=== PATIENT | male | born 1965 | race Caucasian/White ===

== ENCOUNTER 2025-02-23 11:46 | Outpatient (CLI) | payer OTHER, SELFPAY ==
--- NOTE | ~2025-02-23 | XR_ITS ---
EXAM/ PROCEDURE: XR knee RT min 4V - 02/23/2025 12:20 CDT HISTORY: 59 years old Male with pain of rt knee joint. MEDIAL PAIN X 3 DAYS NKI COMPARISON: None available TECHNIQUE: 5 view(s) FINDINGS/ IMPRESSION: There are no fractures or dislocations.Joint space narrowing, subchondral sclerosis, subchondral cyst formation and osteophyte formation, compatible with mild osteoarthritis. Reviewed, dictated and finalized at location A.
--- NOTE | ~2025-02-23 | US_ITS ---
EXAMINATION: US venous doppler LE RT DATE: 02/23/2025 13:15 INDICATION: Right lower limb pain and swelling TECHNIQUE: Grayscale ultrasound images without and with compression and Doppler ultrasound images of the right lower extremity veins were obtained. COMPARISON: None. FINDINGS: Noncompressible deep venous thrombosis in the mid to distal right superficial femoral vein and right popliteal vein. The visualized portions of right common femoral vein, profunda (deep) femoral vein, p osterior tibial veins, gastrocnemius vein and greater saphenous vein outflow are patent. The right pe roneal veins were unable to be identified. IMPRESSION: 1. [id number] deep venous thrombosis extending from the mid right superficial femoral vein dista lly through the right popliteal vein. Reviewed, dictated and finalized at location B. IMPRESSION: 1. Sopof-[id number] deep venous thrombosis extending from the mid right superfic ial femoral vein distally through the right popliteal vein.
--- OUTSIDE RECORDS SUMMARY | 2025-02-23 12:35 | XMS_ITS | Data Portability ---
Author Organization [facility] Address [address] [facility] [address] Care Team Providers Care Director Of Hemophilia Name Role Phone TAMAR KENDRICK Primary Care Provider [phone] Assessment Encounter Date Assessment Date Assessment LastModified by Organization Details LastModified Time 09/14/2024 09/14/2024 we will obtain his previous colonoscopy. We will obtain records from [facility] and we will [facility] follow up in 3 months. Healthy lifestyle care instructions quitting tobacco care instructions getting back on his blood pressure medicines he can come and get a blood pressure check in a couple of weeks [email or web address] Not available 09/18/2024 17:50:01 02/22/2025 02/22/2025 x-ray of the knee a stat venous duplex on the leg with his history of DVT I think some of his knee pain is pes anserinus and if there is no evidence of clot we will talk about possibly some diclofenac gel to the area plus-minus physical therapy follow up will be depending upon test results. Warned of the side effects of tobacco which included but not limited to increase tumors of aerodigestive tract increase insulin as heart attack stroke cancer that could lead to sudden or chronic medical illness [email or web address] Not available 02/22/2025 21:51:48 Plan of Treatment Reminders Order Date Submit Date Provider Last Modified By Organization Details Last Modified Time Details Appointments None recorded. Lab lipid panel, serum 2024 025 [email or web address] [facility], [address], [place], [address], 17:22:11 CMP, serum or plasma 2024 025 [email or web address] [facility], [address], [place], [address], 5 17:22:11 CBC w/ auto diff 2024 025 [email or web address] [facility], [address], [place], [address], 5 17:22:11 PSA, total, serum or plasma 2023 024 [facility], [address], [place], [address], 4 10:17:59 lipid panel, serum 2023 024 [facility], [address], [address], [place], [address], 4 10:17:57 CBC 2023 024 [facility], [address], [address], [place], [address], 4 10:18:01 CMP, serum or plasma 2023 024 [facility], [address], [place], [address], 4 10:17:58 RPR (rapid plasma reagin), serum 2022 023 [facility], [address], [address], [place], [address], 3 08:17:44 HIV 1 + 2, meaningful use set 2022 023 [facility], [address], [address], [place], [address], 3 08:17:45 CT + NG RNA, PCR, unspecifie d specimen 2022 023 [facility], [address], [address], [place], [address], 3 08:17:42 hsv (1+2) igg Ab, serum 2022 023 [facility], [address], [address], [place], [address], 3 08:17:41 Hepatitis C IgG Ab, qual, serum 2022 023 [facility], [address], [address], [place], [address], 3 08:17:40 HBsAg (hepatitis B surface Ag), EIA, serum 2022 023 [facility], [address], [address], [place], [address], 3 08:17:44 hepatitis C virus RNA, quant, PCR, serum or plasma 2022 023 [facility], [address], [address], [place], [address], 3 08:17:42 drug screen, urine 2022 023 [facility], [address], [address], [place], [address], 3 08:17:43 Referral None recorded. Procedures None recorded. Surgeries None recorded. Imaging US, duplex, venous, lower extremity 2024 025 [facility] ([facility]), [address], [place], [address], 5 10:05:23 XR, knee 2024 025 [facility] ([facility]), [address], [place], [address], 5 10:10:34 Medication Orders sildenafil 100 mg tablet 2023 024 [facility], [address] [place] [address], [id number], 4 15:33:37 rosuvastat in 20 mg tablet 2023 024 [facility], [address] [place] [address], [id number], 4 15:33:42 valacyclov ir 500 mg tablet 2023 [facility], [address] [place] [address], [id number], 4 15:33:40 lisinopril 20 mg tablet 2023 [facility], [address] [place] [address], [id number], 4 15:33:40 Xarelto 20 mg tablet 2023 024 [facility], [address] [place] [address], [id number], 4 09:16:18 lisinopril 10 mg tablet 2023 024 [facility], [address] [place] [address], [id number], 4 09:38:26 Viagra 100 mg tablet 2022 023 [id number], [address] [place] [address], [id number], 3 14:55:12 Patient TargetsNo targets recorded. Patient Instructions Encounter Date Encounter Id Patient Instructions Last Modified By Organization Details Last Modified Time 02/11/2023 [id number] A healthy lifestyle: care instructions [facility] Not available 02/11/2023 14:55:01 Quitting Tobacco : Care Instructions [facility] Not available 02/11/2023 14:55:01 03/16/2023 [id number] deciding about using medicines to quit smoking [facility] Not available 03/16/2023 15:14:33 Quitting Tobacco : Care Instructions [facility] Not available 03/16/2023 15:14:33 chronic obstructive pulmonary disease (COPD): care instructions [facility] Not available 03/16/2023 15:14:34 learning about copd and how to prevent lung infections [facility] Not available 03/16/2023 15:14:34 01/05/2024 [id number] learning about high blood pressure [facility] Not available 01/05/2024 17:53:27 09/14/2024 [id number] Quitting Tobacco : Care Instructions [email or web address] Not available 09/18/2024 17:51:32 A healthy lifestyle: care instructions Not available 09/18/2024 17:51:32 02/22/2025 [id number] A healthy lifestyle: care instructions Not available 02/22/2025 17:22:11 Quitting Tobacco : Care Instructions Not available 02/22/2025 17:22:11 Reason for Referral None Reported. Results Created Date Observation Date Name Description Value Unit Range Abnormal Flag Note LastModifiedBy Organization Detail LastModifiedTime 02/12/2002/12/2023 HCV ANTIB SIVA hep C virus Ab Reacti ve nonrea ctive abnormal HCV antib siva alone does not diffe renti ate betwe en previ ously resol micheal infec tion and activ e infec tion. Equiv ocal and React deisy HCV antib siva resul ts shoul d be follo wed up with an HCV RNA test to suppo rt the diagn osis of activ e HCV infec tion. Not Available [facility] ([facility]) [address], [place], [address], 02/13/2023 08:17:40 02/12/2002/12/2023 HSV 1 AND 2-SPE C AB, IGG W/RFX hsv 1 IgG, type spec 8.78 index 0.00-0 .90 above high normal Negat deisy <0.91 Equiv ocal 0.91 - 1.09 Posit deisy >1.09 Note: Negat deisy indic ates no antib odies detec radha to HSV-1 . Equiv ocal may sugge st early infec tion. If clini todd appro priat e, retes t at later date. Posit deisy indic ates antib odies detec radha to HSV-1 . Not Available [facility] ([facility]) [address] [facility], [place], [address], 02/13/2023 08:17:41 02/12/20 23 02/12/2023 HSV 1 AND 2-SPE C AB, IGG W/RFX hsv 2 IgG, type spec 1.40 index 0.00-0 .90 above high normal Negat deisy <0.91 Equiv ocal 0.91 - 1.09 Posit deisy >1.09 Note: Negat deisy indic ates no HSV-2 antib odies detec radha. Posit deisy indic ates HSV-2 antib odies detec radha. Equiv ocal and low posit deisy HSV-2 scree ns (Inde x 0.91- 5.00) may be false posit deisy and are refle xed to suppl nikki hollis in accor dance with CDC guide lines . Not Available [facility] ([facility]) [address] [facility], [place], [address], 02/13/2023 08:17:41 02/12/20 23 02/12/2023 CHLAM YDIA/ GC AMPLI FICAT ION chlamydia trachomatis, LAURENCE Negati ve negati ve Not Available [facility] ([facility]) [address] [place], [address], 02/13/2023 08:17:42 02/12/2002/12/2023 CHLAM YDIA/ GC AMPLI FICAT ION neisseria gonorrhoeae, LAURENCE Negati ve negati ve Not Available [facility] ([facility]) [address] [place], [address], 02/13/2023 08:17:42 02/12/20 23 02/11/2023 HCV RNA BY PCR, QN RFX XUAN test information: Commen t The quant itati ve range of this assay is 15 IU/mL to 100 junior on IU/mL . Not Available [facility] ([facility]) [address] [facility], [place], [address], 02/13/2023 08:17:42 02/12/20 23 02/12/2023 HCV RNA BY PCR, QN RFX XUAN hepatitis C quantitation HCV Not Detect ed Not Available [facility] ([facility]) [address] [facility], [place], [address], 02/13/2023 08:17:42 02/12/2002/12/2023 HCV RNA BY PCR, QN RFX XUAN HCV log10 TNP log10 _IU/m L Unabl e to calcu late resul t since non-n umeri c resul t obtai fred for compo nent test. Not Available [facility] ([facility]) [address] [facility], [place], [address], 02/13/2023 08:17:42 02/12/20 23 02/12/2023 HCV RNA BY PCR, QN RFX XUAN HCV genotype TNP Not indic ated Not Available [facility] ([facility]) [address] [place], [address], 02/13/2023 08:17:42 02/12/20 23 02/12/2023 DRUG PROFI LE,UR ,9 DRUGS ,BUND amphetamines , urine Negati ve NG/mL cutoff =1000 Amphe tamin e test inclu felipe Amphe tamin e and Metha mphet amine . Not Available [facility] ([facility]) [address] [facility], [place], [address], 02/13/2023 08:17:43 02/12/20 23 02/12/2023 DRUG PROFI LE,UR ,9 DRUGS ,BUND barbiturate Negati ve NG/mL cutoff =300 Not Available [facility] ([facility]) [address] [place], [address], 02/13/2023 08:17:43 02/12/20 23 02/12/2023 DRUG PROFI LE,UR ,9 DRUGS ,BUND benzodiazepi gretta Negati ve NG/mL cutoff =300 Not Available [facility] ([facility]) [address] [place], [address], 02/13/2023 08:17:43 02/12/20 23 02/12/2023 DRUG PROFI LE,UR ,9 DRUGS ,BUND cannabinoid Negati ve NG/mL cutoff =50 Not Available [facility] ([facility]) [address] [place], [address], 02/13/2023 08:17:43 02/12/20 23 02/12/2023 DRUG PROFI LE,UR ,9 DRUGS ,BUND cocaine (metab.) Negati ve NG/mL cutoff =300 Not Available [facility] ([facility]) [address] [place], [address], 02/13/2023 08:17:43 02/12/20 23 02/12/2023 DRUG PROFI LE,UR ,9 DRUGS ,BUND opiates Negati ve NG/mL cutoff =300 Opiat e test inclu felipe Codei ne and Morph ine only. Not Available [facility] ([facility]) [address] [place], [address], 02/13/2023 08:17:43 02/12/20 23 02/12/2023 DRUG PROFI LE,UR ,9 DRUGS ,BUND phencyclidin e Negati ve NG/mL cutoff =25 Not Available [facility] ([facility]) [address] [place], [address], 02/13/2023 08:17:43 02/12/20 23 02/12/2023 DRUG PROFI LE,UR ,9 DRUGS ,BUND propoxyphene , urine Negati ve NG/mL cutoff =300 Not Available [facility] ([facility]) [address] [facility], [place], [address], 02/13/2023 08:17:43 02/12/20 23 02/13/2023 DRUG PROFI LE,UR ,9 DRUGS ,BUND methadone screen, urine Negati ve NG/mL cutoff =300 Not Available [facility] ([facility]) [address] [place], [address], 02/13/2023 08:17:43 02/12/20 23 02/12/2023 HBSAG SCREE N HBsAg screen Negati ve negati ve Not Available [facility] ([facility]) [address] [place], [address], 02/13/2023 08:17:44 02/12/20 23 02/12/2023 RPR, RFX QN RPR/C ONFIR M TP RPR Non Reacti ve nonrea ctive Not Available [facility] ([facility]) [address] [facility], [place], [address], 02/13/2023 08:17:44 02/12/2002/12/2023 HIV AB/P2 4 AG WITH REFLE X HIV Ab/P24 Ag screen Non Reacti ve nonrea ctive HIV Negat deisy HIV-1 /HIV- 2 antib odies and HIV-1 p24 antig en were NOT detec radha. There is no labor atory evide nce of HIV infec tion. Not Available [facility] ([facility]) [address] [facility], [place], [address], 02/13/2023 08:17:45 02/12/2002/12/2023 HSV-2 IGG SUPPL EMENT AL TEST hsv-2 IgG supplemental test - Test not perfo rmed. Unabl e to perfo rm test due to curre nt unava ilabi lity of reage nts or disco ntinu ation of test. Note: Posit deisy suppl ement al testi ng indic ates the prese nce of detec table IgG antib odies to HSV-2 . Negat deisy suppl ement al testi ng does not confi rm the prese nce of IgG antib odies to HSV-2 ; recom mend re-te sting in 2 to 4 weeks if clini todd indic ated. Not Available [facility] ([facility]) [address] [place], [address], 02/13/2023 08:17:41 09/14/2009/15/2024 LIPID PANEL cholesterol, total 212 mg/dL 100-19 9 above high normal Not Available [facility] ([facility]) [address] [place], [address], 09/15/2024 10:17:56 09/14/2009/15/2024 LIPID PANEL triglyceride s 113 mg/dL 0-149 Not Available [facility] ([facility]) [address] [place], [address], 09/15/2024 10:17:56 09/14/2009/15/2024 LIPID PANEL HDL cholesterol 48 mg/dL >39 Not Available [facility] ([facility]) [address] [place], [address], 09/15/2024 10:17:56 09/14/20 24 09/15/2024 LIPID PANEL VLDL cholesterol christine 20 mg/dL 5-40 Not Available [facility] ([facility]) [address] [place], [address], 09/15/2024 10:17:56 09/14/2009/15/2024 LIPID PANEL LDL chol calc ([facility]) 144 mg/dL 0-99 above high normal Not Available [facility] ([facility]) [address] [place], [address], 09/15/2024 10:17:56 09/14/2009/15/2024 COMP. METAB OLIC PANEL (14) glucose 102 mg/dL 70-99 above high normal Not Available [facility] ([facility]) [address], [place], [address], 09/15/2024 10:17:58 09/14/20 24 09/15/2024 COMP. METAB OLIC PANEL (14) BUN 22 mg/dL 6-24 Not Available [facility] ([facility]) [address] [place], [address], 09/15/2024 10:17:58 09/14/20 24 09/15/2024 COMP. METAB OLIC PANEL (14) creatinine 1.36 mg/dL 0.76-1 .27 above high normal Not Available [facility] ([facility]) [address] [facility] [place], [address], 09/15/2024 10:17:58 09/14/20 24 09/15/2024 COMP. METAB OLIC PANEL (14) eGFR 60 mL/mi n/1.7 3 >59 Not Available [facility] ([facility]) [address] [facility] [place], [address], 09/15/2024 10:17:58 09/14/20 24 09/15/2024 COMP. METAB OLIC PANEL (14) BUN/creatini ne ratio 16 9-20 Not Available [facility] ([facility]) [address] [facility] [place], [address], 09/15/2024 10:17:58 09/14/20 24 09/15/2024 COMP. METAB OLIC PANEL (14) sodium 139 mmol/ L 134-14 4 Not Available [facility] ([facility]) [address] [facility] [place], [address], 09/15/2024 10:17:58 09/14/20 24 09/15/2024 COMP. METAB OLIC PANEL (14) potassium 4.4 mmol/ L 3.5-5. 2 Not Available [facility] ([facility]) [address] [facility] [place], [address], 09/15/2024 10:17:58 09/14/2009/15/2024 COMP. METAB OLIC PANEL (14) chloride 103 mmol/ L 96-106 Not Available [facility] ([facility]) [address] [facility], [place], [address], 09/15/2024 10:17:58 09/14/2009/15/2024 COMP. METAB OLIC PANEL (14) carbon dioxide, total 22 mmol/ L 20-29 Not Available [facility] ([facility]) [address] [facility], [place], [address], 09/15/2024 10:17:58 09/14/2009/15/2024 COMP. METAB OLIC PANEL (14) calcium 9.8 mg/dL 8.7-10 .2 Not Available [facility] ([facility]) [address] [facility], [place], [address], 09/15/2024 10:17:58 09/14/2009/15/2024 COMP. METAB OLIC PANEL (14) protein, total 7.5 g/dL 6.0-8. 5 Not Available [facility] ([facility]) [address] [facility], [place], [address], 09/15/2024 10:17:58 09/14/2009/15/2024 COMP. METAB OLIC PANEL (14) albumin 4.2 g/dL 3.8-4. 9 Not Available [facility] ([facility]) [address] [facility], [place], [address], 09/15/2024 10:17:58 09/14/2009/15/2024 COMP. METAB OLIC PANEL (14) globulin, total 3.3 g/dL 1.5-4. 5 Not Available [facility] ([facility]) [address] [facility], [place], [address], 09/15/2024 10:17:58 09/14/20 24 09/15/2024 COMP. METAB OLIC PANEL (14) bilirubin, total 0.4 mg/dL 0.0-1. 2 Not Available [facility] ([facility]) [address] [facility], [place], [address], 09/15/2024 10:17:58 09/14/2009/15/2024 COMP. METAB OLIC PANEL (14) alkaline phosphatase 94 IU/L 44-121 Not Available [facility] ([facility]) [address] [facility], [place], [address], 09/15/2024 10:17:58 09/14/2009/15/2024 COMP. METAB OLIC PANEL (14) AST (SGOT) 20 IU/L 0-40 Not Available [facility] ([facility]) [address] [place], [address], 09/15/2024 10:17:58 09/14/2009/15/2024 COMP. METAB OLIC PANEL (14) ALT (SGPT) 16 IU/L 0-44 Not Available [facility] ([facility]) [address] [place], [address], 09/15/2024 10:17:58 09/14/20 24 09/15/2024 PROST ATE-S PECIF IC AG prostate specific Ag 1.5 NG/mL 0.0-4. 0 [place] ECLIA metho dolog y. Accor ding to the Ameri can [employer] g[employer] iatio n, Serum PSA shoul d decre ase and remai n at undet ectab le level s after radic al prost atect li. The AUA defin es bioch emica l recur rence as an initi al PSA value 0.2 ng/mL or great er follo wed by a subse quent confi rmato ry PSA value 0.2 ng/mL or great er. Value s obtai fred with diffe rent assay metho ds or kits canno t be used inter palacio eably . Resul ts canno t be inter prete d as absol stefania evide nce of the prese nce or absen ce of bin linares . Not Available [facility] ([facility]) [address] [facility], [place], [address], 09/15/2024 10:17:59 09/14/2009/15/2024 CBC, PLATE LET, NO DIFFE RENTI AL WBC 7.8 x10e3 /uL 3.4-10 .8 Not Available [facility] ([facility]) [address] [facility], [place], [address], 09/15/2024 10:18:01 09/14/2009/15/2024 CBC, PLATE LET, NO DIFFE RENTI AL RBC 5.05 x10e6 /uL 4.14-5 .80 Not Available [facility] ([facility]) [address] [facility], [place], [address], 09/15/2024 10:18:01 09/14/2009/15/2024 CBC, PLATE LET, NO DIFFE RENTI AL hemoglobin 15.5 g/dL 13.0-1 7.7 Not Available [facility] ([facility]) [address] [facility], [place], [address], 09/15/2024 10:18:01 09/14/2009/15/2024 CBC, PLATE LET, NO DIFFE RENTI AL hematocrit 49.0 % 37.5-5 1.0 Not Available [facility] ([facility]) [address] [facility], [place], [address], 09/15/2024 10:18:01 09/14/2009/15/2024 CBC, PLATE LET, NO DIFFE RENTI AL MCV 97 fL 79-97 Not Available [facility] ([facility]) [address] [facility], [place], [address], 09/15/2024 10:18:01 09/14/2009/15/2024 CBC, PLATE LET, NO DIFFE RENTI AL MCH 30.7 pg 26.6-3 3.0 Not Available [facility] ([facility]) [address] [facility], [place], [address], 09/15/2024 10:18:01 09/14/2009/15/2024 CBC, PLATE LET, NO DIFFE RENTI AL MCHC 31.6 g/dL 31.5-3 5.7 Not Available [facility] ([facility]) [address] [facility], [place], [address], 09/15/2024 10:18:01 09/14/2009/15/2024 CBC, PLATE LET, NO DIFFE RENTI AL RDW 13.5 % 11.6-1 5.4 Not Available [facility] ([facility]) [address] [place], [address], 09/15/2024 10:18:01 09/14/2009/15/2024 CBC, PLATE LET, NO DIFFE RENTI AL platelets 206 x10e3 /uL 150-45 0 Not Available [facility] ([facility]) [address] [place], [address], 09/15/2024 10:18:01 Result Notes None recorded. Problems Name Problem SNOMED Code Status Onset Date Resolution Date Notes Provider Name and Address Organization Details Recorded Time History of deep vein thrombosis 788837736 Active 2023 Tamar Kendrick MD Attn: Shireen tsang,[address] [facility], [place], [address], [place] [facility] 4 17:50:13 Essential hypertensio n 04244990 Active 2024 Carmela Loyola [place] null, [place] [facility] 5 17:16:57 Pain of right knee joint 4797146100747 00 Active 2024 Carmela Loy[place], [place] [facility] 5 17:16:57 Swelling of lower leg 622759502 Active 2024 Carmela Loyola [place], [place] [facility] 5 17:16:58 Hyperlipide ilya 15753879 Active 2024 Carmela Loyola [place], [place] [facility] 5 17:17:00 Chronic hepatitis C 807101847 Active Rachell Maldonado MD Attn: Accountin g,[address] [facility], [place], [address], [place] [facility] 6 11:40:25 Gallstone 829129685 Active Rachell Maldonado MD Attn: Accountin g,[address] [facility], [place], [address], [place] [facility] 6 12:37:24 History of drug abuse 714912157 Active Rachell Maldonado MD Attn: Accountin g,[address] [facility], [place], [address], [place] [facility] 6 11:40:25 Cannabis abuse 97409015 Active Rachell Maldonado MD Attn: Accountin g,[address] [facility], [place], [address], [place] [facility] 6 11:40:25 Chronic obstructive pulmonary disease 03458627 Active Rachell Maldonado MD Attn: Accountin g,[address] [facility], [place], [address], [place] [facility] 6 11:40:25 Tobacco dependence syndrome 96236182 Active Rachell Maldonado MD Attn: Accountin g,[address] [place], [address], [place] [facility] 6 11:40:25 Herpesvirus infection 58190799 Active Rachell Maldonado MD Attn: Accountin g,[address] [place], [address], [place] [facility] 6 12:05:10 Acute hepatitis 74837571 Active Rachell Maldonado MD Attn: Accountin g,[address] [place], [address], [facility] - [facility] 6 11:40:25 Problem Notes None recorded. Medical Equipment None Reported. Allergies No known drug allergies Medications Name Sig Start Date Stop Date Status Note LastModified by Organization Details LastModified Time clindamycin HCl 300 mg capsule 02/11 completed Not Available Not Available Not Available trazodone 50 mg tablet 02/11 completed Not Available Not Available Not Available ibuprofen 800 mg tablet 02/11 completed Not Available Not Available Not Available lisinopril 20 mg tablet TAKE ONE TABLET BY MOUTH EVERY MORNING FOR BLOOD PRESSURE active Not Available Not Available No t Available valacyclovi r 500 mg tablet TAKE 1 TABLET BY MOUTH ONCE DAILY active Not Available Not Available No t Available sulfamethox azole 800 mg-trimetho prim 160 mg tablet 02/11 completed Not Available Not Available Not Available tramadol 50 mg tablet 02/11 completed Not Available Not Available Not Available sildenafil 100 mg tablet TAKE ONE TABLET BY MOUTH TWICE A WEEK NEEDED active Not Available Not Available No t Available acyclovir 800 mg tablet TAKE 1 TABLET BY MOUTH EVERY DAY active Not Available Not Available No t Available lisinopril 10 mg tablet TAKE 1 TABLET BY MOUTH ONCE DAILY 09/15 completed Not Available Not Available Not Available oxycodone-a cetaminophe n 7.5 mg-325 mg tablet 02/11 completed Not Available Not Available Not Available rosuvastati n 20 mg tablet TAKE ONE TABLET BY MOUTH ONCE DAILY AT BEDTIME FOR CHOLESTER OL active Not Available Not Available No t Available Xarelto 15 mg tablet active Not Available Not Available No t Available Xarelto 20 mg tablet TAKE ONE TABLET BY MOUTH EVERY MORNING active Not Available Not Available No t Available Vitals Date Recorded Body height Body mass index (BMI) Body weight Heart rate Oxygen saturation Oxygen saturation in Arterial blood by Pulse oximetry Systolic blood pressure Diastolic blood pressure Provider Name and Address Organization Details Last Updated DateTime 3 185.42 cm 34.3 kg/m2 487693. 02 g 77 /min 97 % 97 % 154 mm[Hg] 72 mm[Hg] Sabrina Meadows MA [place] - [facility] 3 14:27:55 Date Recorded Body height Body mass index (BMI) Body weight Oxygen saturation Oxygen saturation in Arterial blood by Pulse oximetry Heart rate Systolic blood pressure Diastolic blood pressure Provider Name and Address Organization Details Last Updated DateTime 3 185.42 cm 34.2 kg/m2 562973. 86 g 97 % 97 % 63 /min 140 mm[Hg] 74 mm[Hg] Sabrina Meadows MA [facility] 3 10:39:13 Date Recorded Body height Body mass index (BMI) Body weight Heart rate Oxygen saturation Oxygen saturation in Arterial blood by Pulse oximetry Systolic blood pressure Diastolic blood pressure Provider Name and Address Organization Details Last Updated DateTime 4 185.42 cm 33.4 kg/m2 644544. 87 g 69 /min 96 % 96 % 162 mm[Hg] 82 mm[Hg] Zenaida Barrios MA [facility] 4 16:20:14 Date Recorded Body height Body mass index (BMI) Body weight Heart rate Oxygen saturation Oxygen saturation in Arterial blood by Pulse oximetry Systolic blood pressure Diastolic blood pressure Provider Name and Address Organization Details Last Updated DateTime 4 185.42 cm 32.2 kg/m2 885849. 82 g 118 /min 96 % 96 % 150 mm[Hg] 70 mm[Hg] Radha Connor MA [facility] 4 14:28:46 Date Recorded Body height Body mass index (BMI) Body weight Heart rate Oxygen saturation Oxygen saturation in Arterial blood by Pulse oximetry Systolic blood pressure Diastolic blood pressure Provider Name and Address Organization Details Last Updated DateTime 5 185.42 cm 32.4 kg/m2 383344. 93 g 61 /min 97 % 97 % 132 mm[Hg] 80 mm[Hg] Radha Connor MA [facility] 5 16:21:20 Social History Question Answer Notes LastModified by Organization Details LastModified Time Tobacco Smoking Status Current Every Day Smoker cigarettes CLAU Taylor, [facility] 04/10/2016 11:23:58 Do You Have An Advance Directive? No Information not available 09/14/2024 What Is Your Level Of Alcohol Consumption? None Information not available 02/11/2023 Are You Blind Or Do You Have Difficulty Seeing? Yes Wears Glasses Information not available 02/11/2023 What Is Your Level Of Caffeine Consumption? Moderate Information not available 02/11/2023 In The 14 Days Before Symptom Onset, Have You Had Close Contact With A Laboratory-confi rmed COVID-19 While That Case Was Ill? No Information not available 09/14/2024 In The 14 Days Before Symptom Onset, Have You Had Close Contact With A Person Who Is Under Investigation For COVID-19 While That Person Was Ill? No Information not available 09/14/2024 Have You Been To An Area Known To Be High Risk For COVID-19? No Information not available 09/14/2024 Are You Currently Employed? Yes Information not available 02/11/2023 Are You Deaf Or Do You Have Serious Difficulty Hearing? No Information not available 02/11/2023 What Type Of Diet Are You Following? REGULAR Information not available 02/11/2023 What Is The Highest Grade Or Level Of School You Have Completed Or The Highest Degree You Have Received? 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 No Information not available 09/14/2024 What Was The Date Of Your Most Recent Tobacco Screening? 02/22/2025 Information not available 02/22/2025 What Is Your Relationship Status? Single Information not available 02/11/2023 Do You Use Your Seat Belt Or Car Seat Routinely? Yes Information not available 02/11/2023 Do You Have Smoke And Carbon Monoxide Detectors In Your Home? Yes Information not available 02/11/2023 How Much Tobacco Do You Smoke? 0.5 PPD Information not available 01/05/2024 Do You Feel Stressed (tense, Restless, Nervous, Or Anxious, Or Unable To Sleep At Night)? [id number] Information not available 02/11/2023 Do You Use Any Illicit Or Recreational Drugs? No Information not available 02/11/2023 Do You Use Sunscreen Routinely? Yes Information not available 09/14/2024 Has Tobacco Cessation Counseling Been Provided? Yes Information not available 09/14/2024 On What Date Was Tobacco Cessation Counseling Provided? 02/22/2025 Information not available 02/22/2025 How Many Years Have You Smoked Tobacco? 40 [email or web address] Information not available 04/10/2016 Do You Or Have You Ever Used Any Other Forms Of Tobacco Or Nicotine? No Information not available 09/14/2024 Sex: Male Functional Status Question Answer Note LastModified by Organization D etails LastModified Time Are you able to care for yourself? Yes Information not available 02/11/2023 What is your exercise level? Moderate Information not available 02/11/2023 Mental Status None recorded. Family History Nothing Reported. Medical History Condition Response Anxiety Disorder Y High Cholesterol Y Hepatitis Y Acid Reflux (GERD) Y Thyroid Problems Y Depression Y Blood Clots Y Immunizations Vaccine Type Date Status Note Provider Nam e and Address Organization Details Recorded Time SARS-COV-2 (COVID-19) vaccine, UNSPECIFIED 10/06/2022 completed Sabrina Meadows [place], [place] [facility] 02/11/2023 14:22:39 influenza, unspecified formulation 10/06/2022 completed Sabrina Meadows [place] [facility] 02/11/2023 14:23:09 COVID-19, mRNA, LNP-S, PF, 100 mcg/0.5mL dose or 50 mcg/0.25mL dose 01/15/2021 completed Radha Cononr [place], [place] [facility] 02/22/2025 16:19:52 COVID-19, mRNA, LNP-S, PF, 100 mcg/0.5mL dose or 50 mcg/0.25mL dose 02/12/2021 completed Radha Connor [place], [place] [facility] 02/22/2025 16:19:52 COVID-19, mRNA, LNP-S, PF, 100 mcg/0.5mL dose or 50 mcg/0.25mL dose 10/24/2021 completed Radha [place] [facility] 02/22/2025 16:19:52 COVID-19, mRNA, LNP-S, bivalent, PF, 50 mcg/0.5 mL or 25mcg/0.25 mL dose 08/20/2022 completed Radha Connor MA [place], [place] - [facility] 02/22/2025 16:19:52 Past Encounters Encounter ID Performer Location Encounter Start Date Encounter Closed Date Diagnosis/Indication Diagnosis SNOMED-CT Code Diagnosis ICD10 Code Diagnosis Note [id number] MD Edward [facility]hena (Adult Med) [address] [place] [address] 04/10/2016 10:45:23 04/10/2016 13:14:19 Chronic hepatitis C 081436996 B18.2 Gallstone 286297868 K80. 66 History of drug abuse 37 2669137 F19.21 Cannabis abuse 44089350 F12.90 Chronic ob structive pulmonary disease 24876965 J44.9 Tobacco de pendence syndrome 75121272 F17.290 [id number] MD Edward Bahena (Adult Med) [address] [place] [id number] 0 04/16/2016 10:27:23 04/16/2016 18:28:56 Cannabis abuse 85687082 F12.90 Chronic hepatitis C 1283 13236 B18.2 Chronic ob structive pulmonary disease 42226502 J44.9 History of drug abuse 37 2772452 F19.21 Tobacco de pendence syndrome 45046940 F17.290 Herpesvirus infection 23 206442 A60.00 Acute hepatitis 43830911 B17.9 [id number] Chata Leon (Adult Med) [address] [place] [id number] 0 04/24/2016 09:59:47 04/28/2016 13:46:30 Acute hepatitis 93543909 B17.9 Cannabis abuse 90816716 F12.90 Chronic hepatitis C 1283 17753 B18.2 Chronic ob structive pulmonary disease 45094400 J44.9 Tobacco de pendence syndrome 05551805 F17.290 History of drug abuse 37 5469988 F19.21 [id number] MD Edward Bahena (Adult Med) [address] [place] [id number] 0 02/11/2023 13:42:55 02/12/2023 14:15:47 Obesity 880187946 E66.9 BMI is 34.3 , diet, exercise and lose weight. History of alcoholism 16 5037860 F10.21 In remission. History of substance abuse 304872035 F19.11 IV substance abuse and cocaine. abuse. History of hepatitis C 7637354584 9101 Z86.19 Received 8 weeks of oral med treatment, will test hep C and record from alf where he used to be locked up. Erectile dysfunction 860 014911 F52.21 Asking med to help his personal performanc e. Chronic sciatica 7494850 01 M54.31 He dose not want any med, he will watch his diet, exercise and lose weight , also looking for tieeter reverse table , this office has no commend. He will decide his own. He declines for the dietitian or nutrionist referral. Venereal d isease screening 359864258 Z11.3 History of IV substance abuse. Smoker 92867616 F17.200 Advised him to quit, but he has no intension to quit. He has quit smoking for 5 years. no oxygen, nor in haler. No difficulty of breathing. No cough. asymptomat ic. [id number] [facility] [address] [place] [address] 03/16/2023 09:37:07 03/19/2023 12:55:50 Herpesvirus infection 69750891 A60.00 Will refill med. Chronic ob structive pulmonary disease 81483707 J44.9 Stable, no difficulty of breathing today, no use inhaler Tobacco de pendence syndrome 68646165 F17.290 Advised him to quit smoking.He is aware of smoking can cause cancer of lung, throat and mouth. emphysema, and other health related disease. He understood . [id number] MD Edward Bahena (Adult Med) [address] [place] [id number] 01/05/2024 15:54:02 01/06/2024 10:58:05 Acute deep venous thrombosis of right lower extremity 8662029333 32161 I82.401 on 15 mg bid for the first 3 weeks. then 20 mg /day for 3 months. Can be mailed to him thru mail with extra $ 5 dollars, According th medicate pharmacy. Essential hypertension 90463623 I10 BP by Dr Maldonado, reading is 150 /66 mm Hg , sitting , left arm, big adult cuff. He used to take 10 mg lisinopril /day [id number] MD Edward Welch (Adult Med) [address] [place] [address]74[address] 0 09/14/2024 14:05:51 09/14/2024 15:18:36 Smoker 77330477 F17.200 Obesity 001810993 E66.9 Essential hypertension 81263744 I10 Hyperlipidemia 37975152 E78.5 Erectile dysfunction 860 498663 F52.21 Renewal of prescription 460388269 Z76.0 History of deep vein thrombosis 197948470 Z86.338 [id number] Edward (Adult Med) [address] [place] [address] 0 02/22/2025 15:50:13 02/22/2025 17:19:46 Smoker 58447714 F17.200 Body mass index 30+ - obesity 630820567 Z68.32 Obesity 285464973 E66.9 Essential hypertension 52648569 I10 Pain of ri ght knee joint 8696378771 87171 M25.561 Swelling of lower leg 44 0687596 R22.40 Hyperlipidemia 05369448 E78.5 Health Concerns Section Related Observation LastModified by Organization Detai ls LastModified Time None Recorded Concern Status LastModified by Organization Details LastModified Time None Recorded Advance Directives Directive N: Payers Encounter Date Sequence Insurance Name Policy Number Policy Campos Covered Member ID Campos Member ID Guarantor Name 02/11/2023 2 [place] [facility] PUBLIC AID [facility] [id number] [facility] 03/16/2023 2 [place] [facility] [id number] [facility] 01/05/2024 2 [place] [facility] [id number] [facility] 01/05/2024 1 [facility] [id number] [facility] [id number] [facility] 09/14/2024 1 [facility] [id number] [facility] [id number] [facility] 02/22/2025 1 [facility] [id number] [facility] [id number] [facility] 02/22/2025 2 [facility] (MEDICAID HMO) [id number] [facility] [id number] [facility] Notes Date Note Type Note Provider Name and Address Organization Details Recorded Time 02/11/2023 text/html Office visit, TRESA PARKER. history of iv drug abuser, hepatitis C. alcoholism Rachell Maldonado MD Attn: Accounting[address] [facility], [place], [address], [facility] 02/11/2023 18:03:43 03/16/2023 text/html Office visit, TRESA PARKER, went thru the details of his blood tests and copies provided. Hepatitis V is cure, positive Antibody but negative detection of virus. positive hepes 1/ , on anti viral med . so far no break out. He agreed to refills. He will let this office to know the new address or name of his pharmacy. Rachell Maldonado MD Attn: [address]ing[address] [facility], [place], [address], [facility] - [facility] 03/16/2023 15:14:37 01/05/2024 text/html Office visit, TRESA PARKER. was told to have acute DVT on the right leg, proximal , near groin. , on xarelto 15 mg bid for 3 weeks. . Quit substance, was lacked up in alf , been released about one year ago. Advised him to quit smoking which carries the risk for recurrent DVT. No chest pain, no shortness of breath, no fever. ROS as noted in HPI. Also had hepatitis C, whui=ich was cured by takinh med at alf, he said. Rachell Maldonado MD Attn: Accounting,[address] [facility], [place], [address], [place] - [facility] 01/05/2024 18:39:02 09/14/2024 text/html 59-year-old with a history of DVT x3 history of hepatitis-C treated with Mavyret hypertension hyperlipidemia palpitations pack a day smoker for many years and history of substance abuse in the past Tamar Kendrick MD Attn: Accounting[address] [place], [address], [facility] - [facility] 09/18/2024 17:51:35 02/22/2025 text/html quit taking Xare lto he has got swelling of his leg now with no chest pain or shortness of breath denies trauma pain in that right leg medial knee with some swelling hypertension his blood pressure looks pretty well controlled he quit taking the lisinopril because it made him feel bad dyslipidemia says he is taking rosuvastatin continues his generic Viagra. As far as the knee goes up and down steps seems to causing problems Tamar Kendrick MD Attn: Accounting[address] [facility], [place], [address], [facility] - [facility] 02/22/2025 21:57:09
--- OUTSIDE RECORDS SUMMARY | 2025-02-23 12:35 | XMS_ITS | CONTINUITY OF CARE DOCUMENT ---
Author Name ceciljeffguillermo Address Unknown Organization [facility] Address [address] [place] [address] Phone [phone] Care Team Providers Care Email Designer Name Role Phone Christoph CLARK, Murali Unavailable ANNA CLARK, LYN Unavailable ADARSH CLARK, DENNIS Unavailable [phone] INSURANCE PROVIDERS Payer name Policy type / Coverage type [place] [employer] party ID [place] MEDICAID (2) Medicaid [id number]
--- OUTSIDE RECORDS SUMMARY | 2025-02-23 12:36 | XMS_ITS | Referral Summary ---
Author Organization [facility] Address [address] [place] [address] Care Team Providers Care Director Talent Name Role Phone Unknown, Notinfile Primary Care Provider Unavail able Allergies No known active allergies Medications apixaban 5 mg (74 tabs) tablets,dose pack Take 10 mg (2 tablets) by mouth 2 (two) times a day for 7 days, then take 5 mg (1 tablet) by mouth 2 (two) times a day thereafter. 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 Gender Identity Not on file Sexual Orientation Not on file Last Filed Vital Signs Vital Sign Reading Time Taken Comments Blood Pressure 159/107 12/26/2023 6:17 PM SPLUNK ARCHITECT Pulse 65 12/26/2023 6:17 PM SPLUNK ARCHITECT Temperature 36.7 C (98 F) 12/26/2023 2:18 PM SPLUNK ARCHITECT Respiratory Rate 18 12/26/2023 6:17 PM SPLUNK ARCHITECT Oxygen Saturation 99% 12/26/2023 6:17 PM SPLUNK ARCHITECT Inhaled Oxygen Concentration - - Weight 113.4 kg (250 lb) 12/26/2023 2:18 PM SPLUNK ARCHITECT Height 185.4 cm (6' 1 ) 12/26/2023 2:18 PM SPLUNK ARCHITECT Body Mass Index 32.98 12/26/2023 2:18 PM SPLUNK ARCHITECT Plan of Treatment Not on file Insurance C[employer] [facility] CIGNA Care Teams Director Talent Relationship Specialty Start Date End Date Unknown, Notinfile PCP - General 12/26/23
--- OUTSIDE RECORDS SUMMARY | 2025-02-23 12:36 | XMS_ITS | Continuity of Care Document ---
Author Organization [facility] (Adult Med) Address [address] [place] [address] Care Team Providers Care Inspector Metal Can Name Role Phone COLBY KENDRICK Primary Care Provider Assessment Encounter Date Assessment Date Assessment LastModified by Organization Details LastModified Time 02/22/2025 02/22/2025 x-ray of the knee a [...] lead to sudden or chronic medical illness [email or web address] Not available 02/22/2025 21:51:48 Plan of Treatment Reminders Order Date Submit Date Provider Last Modified By Organization Details Last Modified Time Details Appointments None recorded. Lab lipid panel, serum 2024 025 [email or web address] [facility], [address], [place], [address], 17:22:11 CMP, serum or plasma 2024 025 [email or web address] [facility], [address], [address], [place], [address], 17:22:11 CBC w/ auto diff 2024 025 [email or web address] [facility], [address], [address], [place], [address], 17:22:11 Referral None recorded. Procedures None recorded. Surgeries None recorded. Imaging US, duplex, venous, lower extremity 2024 025 [facility] (Imaging), [address], [place], [address], 10:05:23 XR, knee 2024 025 [facility] (One Call Scheduling), [address] [place], [address], 10:10:34 Medication Orders None recorded. Patient TargetsNo targets recorded. Patient Instructions Encounter Date Encounter Id Patient Instructions Last Modified By Organization Details Last Modified Time 02/22/2025 [id number] A healthy lifestyle: care instructions [email or web address] Not available 02/22/2025 17:22:11 Quitting Tobacco : Care Instructions [email or web address] Not available 02/22/2025 17:22:11 Reason for Referral None Reported. Problems Name Problem SNOMED Code Status Onset Date Resolution Date Notes Provider Name and Address Organization Details Recorded Time History of deep vein thrombosis 071255739 Active 2023 Colby Kendrick MD Attn: Shireen tsang,[address] [place], [address], [place] [facility] 4 17:50:13 Essential hypertensio n 79637561 Active 2024 Carmela Loyola [place], [place] [facility] 5 17:16:57 Pain of right knee joint 1251005928633 00 Active 2024 Carmela L[place] [facility] 5 17:16:57 Swelling of lower leg 066135414 Active 2024 Carmela [place] [facility] 5 17:16:58 Hyperlipide ilya 77572600 Active 2024 Carmela [place] [facility] 5 17:17:00 Chronic hepatitis C 077163850 Active Rachell Maldonado MD Attn: Shireen tsang,[address] [place], [address], [place] [facility] 6 11:40:25 Gallstone 665448265 Active Rachell Maldonado MD Attn: Shireen tsang,[address] [place], [address], [place] [facility] 6 12:37:24 History of drug abuse 843072731 Active Rachell Maldonado MD Attn: Larrymary ann tsang,[address] [place], [address], [place] [facility] 6 11:40:25 Cannabis abuse 58185997 Active Rachell Maldonado MD Attn: Larrymary ann tsang,[address] [place], [address], [place] [facility] 6 11:40:25 Chronic obstructive pulmonary disease 61067418 Active Rachell Maldonado MD Attn: Larrymary ann tsang,[address] [place], [address], [place] [facility] 6 11:40:25 Tobacco dependence syndrome 28040219 Active Rachell Maldonado MD Attn: Larrymary ann tsang,[address] [place], [address], [place] [facility] 6 11:40:25 Herpesvirus infection 82774538 Active Rachell Maldonado MD Attn: Shireen sharan,[address] [place], [address], [place] [facility] 6 12:05:10 Acute hepatitis 19019812 Active Rachell Maldonado MD Attn: Shireen sharan,[address] [place] [address], [address], [place] [facility] 6 11:40:25 Problem Notes None recorded. Medical [...] Updated DateTime 5 185.42 cm 32.4 kg/m2 015116. 93 g 61 /min 97 % 97 % 132 mm[Hg] 80 mm[Hg] Radha Connor MA [facility] 5 16:21:20 Social History Question Answer Notes LastModified by Organization Details LastModified Time Tobacco Smoking Status Current Every Day Smoker cigarettes Devang Caba MA [facility], [place] - [facility] 04/10/2016 11:23:58 Do You Have An Advance [...] Or The Highest Degree You Have Received? [id number] Information not available 01/05/2024 What Is Your [...] Anxious, Or Unable To Sleep At Night)? [id number] Information not available 02/11/2023 Do You Use [...] History Nothing Reported. Medical History Condition Response Thyroid Problems Y Depression Y Blood Clots Y Anxiety Disorder Y Acid Reflux (GERD) Y High Cholesterol Y Hepatitis Y Immunizations Vaccine Type Date Status Note Provider Nam e and Address Organization Details Recorded Time SARS-COV-2 (COVID-19) vaccine, UNSPECIFIED 10/06/2022 completed Sabrina Mead[place] [facility] 02/11/2023 14:22:39 influenza, unspecified formulation 10/06/2022 completed Sabrina [place] [facility] 02/11/2023 14:23:09 COVID-19, mRNA, LNP-S, PF, 100 mcg/0.5mL dose or 50 mcg/0.25mL dose 01/15/2021 completed Radha Connor [place], [place] - [...] mL dose 08/20/2022 completed Radha Connor MA [facility], [facility] 02/22/2025 16:19:52 Past Encounters Encounter ID Performer Location Encounter Start Date Encounter Closed Date Diagnosis/Indication Diagnosis SNOMED-CT Code Diagnosis ICD10 Code Diagnosis Note [id number] [facility] (Adult Med) [address] [place] [address] 02/22/2025 15:50:13 02/22/2025 17:19:46 Smoker 17795446 F17.200 Body mass index 30+ - obesity 420975076 Z68.32 Obesity 593498236 E66.9 Essential hypertension 71188724 I10 Pain of ri ght knee joint 1614373541 40465 M25.561 Swelling of lower leg 44 8690519 R22.40 Hyperlipidemia 80893204 E78.5 Health Concerns Section Related Observation LastModified by Organization Detai ls LastModified Time None Recorded Concern Status LastModified by Organization Details LastModified Time None Recorded Payers Encounter Date Sequence Insurance Name Policy Number Policy Campos Covered Member ID Campos Member ID Guarantor Name 02/22/2025 1 [facility] [id number] [facility] [id number] [facility] 02/22/2025 2 [facility] (MEDICAID HMO) [id number] [facility] [id number] [facility] Notes Date Note Type Note Provider Name and Address Organization Details Recorded Time 02/22/2025 text/html quit taking Xarelto he has got swelling of his leg [...] and down steps seems to causing problems Colby Kendrick MD Attn: [address] [place], [address], [facility] 02/22/2025 21:57:09
--- OUTSIDE RECORDS SUMMARY | 2025-02-23 12:36 | XMS_ITS | Clinical Summary ---
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 Gender Identity Not on file Sexual Orientation Not on file Obstetrics History Last Filed Vital Signs Vital Sign Reading Time Taken Comments Blood Pressure 159/107 12/26/2023 6:17 PM STEEL WOOL MACHINE OPERATOR Pulse 65 12/26/2023 6:17 PM STEEL WOOL MACHINE OPERATOR Temperature 36.7 C (98 F) 12/26/2023 2:18 PM STEEL WOOL MACHINE OPERATOR Respiratory Rate 18 12/26/2023 6:17 PM STEEL WOOL MACHINE OPERATOR Oxygen Saturation 99% 12/26/2023 6:17 PM STEEL WOOL MACHINE OPERATOR Inhaled Oxygen Concentration - - Weight 113.4 kg (250 lb) 12/26/2023 2:18 PM STEEL WOOL MACHINE OPERATOR Height 185.4 cm (6' 1 ) 12/26/2023 2:18 PM STEEL WOOL MACHINE OPERATOR Body Mass Index 32.98 12/26/2023 2:18 PM STEEL WOOL MACHINE OPERATOR Plan of Treatment Health Maintenance Due Date Last Done Comments Colon Cancer Screening-Colonoscopy 1966 Depression Screening 1966 Hepatitis C Screening 1966 Prostate Cancer Screening-PSA 1966 DTaP/Tdap/Td Vaccine (1 - Tdap) 1977 Hepatitis B Screening 1984 Regular Well Visit/Exam 18-64 1984 Pneumococcal vaccine <65 (1 of 2 - PCV) 1985 Zoster Vaccine (1 of 2) 2016 Covid-19 Vaccine (6 - 2023-2 5 season) 2024 10/06/2022, 08/20/2022, 10/24/2021, Additional history exists Influenza Vaccine (#1) 2024 10/06/2022 Insurance [facility] [employer] Care Teams Child Specialist Relationship Specialty Start Date End Date Unknown, Notinfile PCP - General 12/26/23
--- OUTSIDE RECORDS SUMMARY | 2025-02-23 12:36 | XMS_ITS | Clinical Summary ---
Author Organization [employer] Address [id number] [phone] Phone Care Team Providers Care Web Operations Lead Name Role Phone David Santana DO Primary Care Provider [phone] Allergies No known active allergies Medications rosuvastatin (Crestor) 20 MG tablet Take 1 tablet (20 mg) by mouth in the morning. 90 tablet 1 4 Active rivaroxaban (Xarelto) 20 MG tablet Take 1 tablet (20 mg) by mouth in the morning. Take with food.. 30 tablet 11 4 06/09/20 25 Active amLODIPine-benaze pril (Lotrel) 5-20 MG capsuleIndication s:Primary hypertension Take 1 capsule by mouth in the morning. 30 capsule 4 Active Active Problems Problem Noted Date Diagnosed Date Mixed hyperlipidemia 05/13/2024 Prediabetes 05/13/2024 Primary hypertension 05/13/2024 Nicotine use disorder 05/13/2024 Chronic low back pain with sciatica 05/13/2024 HSV (herpes simplex virus) infection 05/13/2024 Hx of bipolar disorder 05/13/2024 Social History Tobacco Use Types Packs/Day Years Used Date Smoking Tobacco: Every Day Cigarettes Smokeless Tobacco: Never Tobacco Cessation:Ready to Q uit: Not Asked; Counseling Given: Not Answered PHQ-9 Answer Date Recorded Patient Health Questionnaire-9 Score 4 06/09/2024 Intimate Partner Violence Answer Date R ecorded Feels physically and emotionally safe Not on ernestine e 03/30/2024 Fear of partner Not on file 03/30/2024 Housing Stability Answer Date Recorded Housing situation Not on file 03/30/2024 Worried about losing housing Not on file Sex and Gender Information Value Date Recorded Sex Assigned at Male 05/13/2024 9:48 AM EDT Legal Sex Male 12:55 PM EDT Gender Identity Male 05/13/2024 9:48 AM EDT Sexual Orientation Straight 05/13/2024 9: 48 AM EDT Last Filed Vital Signs Vital Sign Reading Time Taken Comments Blood Pressure 168/90 06/09/2024 10:46 AM CDT 16 5/96 Pulse 60 06/09/2024 10:46 AM CDT Temperature 36.4 C (97.6 F) 06/09/2024 10:46 AM CDT Respiratory Rate - - Oxygen Saturation 96% 06/09/2024 10:46 AM CDT Inhaled Oxygen Concentration - - Weight 110 kg (243 lb) 06/09/2024 10:46 AM CDT Height 185.4 cm (6' 1 ) 06/09/2024 10:46 AM CDT Body Mass Index 32.06 06/09/2024 10:46 AM CDT Plan of Treatment Health Maintenance Due Date Last Done Comments CT Colonography 1966 Colonoscopy 1966 Colorectal Cancer Screening 1966 FIT-DNA 1966 FIT 1966 FOBT 1966 Sigmoidoscopy 1966 MMR Vaccines (1 of 1 - Standard series) 1967 DTaP/Tdap/Td Vaccines (1 - Tdap) 1973 Hepatitis B Vaccines (1 of 3 - 19+ 3-dose series) 1985 Pneumococcal Vaccine: 50+ Years (1 of 2 - PCV) 1985 Zoster Vaccines (1 of 2) 2016 COVID-19 Vaccine ( season) 2024 10/06/2022, 08/20/2022, 10/24/2021, Additional history exists Diabetes: Hemoglobin A1C 05/13/2025 05/13/2024 Well Adult Exam (Age 18+ Annual Physical) 05/13/2025 05/13/2024 Influenza Vaccine (Season Ended) 2025 10/06/2022 HIV Screening Completed 05/13/2024 Hepatitis B Screening Completed 05/13/2024 Hepatitis C Screening Completed 05/13/2024 HIB Vaccines Aged Out No longer eligi ble based on patient's age to complete this topic HPV Vaccines Aged Out No longer eligi ble based on patient's age to complete this topic Hepatitis A Vaccines Aged Out No long er eligible based on patient's age to complete this topic IPV Vaccines Aged Out No longer eligi ble based on patient's age to complete this topic Meningococcal B Vaccine Aged Out No l onger eligible based on patient's age to complete this topic Meningococcal Vaccine Aged Out No rohith zarina eligible based on patient's age to complete this topic Rotavirus Vaccines Aged Out No longer eligible based on patient's age to complete this topic Procedures Procedure Name Priority Date/Time Associated Diagnosis Comments HEPATITIS PANEL, GENERAL Routine 05/13/2024 10:53 AM CDT Need for hepatitis B screening test POCT RAPID HIV Routine 05/13/2024 9:25 AM CDT Encounter for screening for HIV POCT HEMOGLOBIN A1C Routine 05/13/2024 9 :19 AM CDT Diabetes mellitus screening from Last 3 Months or Most Recently Relevant to Health Maintenance Results * (ABNORMAL) HEPATITIS PANEL, GENERAL (05/13/2024 10:53 AM CDT) HEPATITIS A AB REACTIVE( A) NON-REACT DEISY [facility] Comment: For additional information, please refer to http://Zank.Sharalike/faq/PRO450 (This link is being provided for informational/ educational purposes only.) HEPATITIS B SURF AB REACTIVE( A) NON-REACT DEISY [facility] HEPATITIS B SURFACE AG NON-REACT DEISY NON-REACT DEISY [facility] Comment: For additional information, please refer to http://Zank.Applitools.Sawtooth Ideas/faq/XTI654 (This link is being provided for informational/ educational purposes only.) HEPATITIS B CORE AB NON-REACT DEISY NON-REACT DEISY [facility] Comment: For additional information, please refer to http://Zank.Applitools.Sawtooth Ideas/faq/YOY504 (This link is being provided for informational/ educational purposes only.) HEPATITIS C AB REACTIVE( A) NON-REACT DEISY [facility] Comment: Based on this result, the sample will be tested for HCV RNA by a Nucleic Acid Amplification Test (NAAT) to determine if the patient has a current active infection. Blood Venous blood specimen / Unknown 05/13/2024 10:53 AM CDT 05/13/2024 10:54 AM CDT Alexys Henriquez MD LAB BLOOD ORDERABLES Final Result Performing Organization Address City/State/[facility] Co de Phone Number [facility] [address] [place] [address], * POCT Rapid HIV (05/13/2024 9:25 AM CDT) Rapid HIV 1X2 Nonreactive Non-React deisy Internal Control Valid Blood 05/13/2024 9:25 AM CDT Alexys Henriquez MD POINT OF CARE TEST ENTER/E DIT ORDERABLES Final Result * POCT HEMOGLOBIN A1C Manually Resulted (05/13/2024 9:19 AM CDT) HEMOGLOBIN A1C 5.8 <=5.8 % Blood Venous blood specimen / Unknown 05/13/2024 9:19 AM CDT Alexys Henriquez MD POINT OF CARE TEST ENTER/E DIT ORDERABLES Final Result from Last 3 Months or Most Recently Relevant to Health Maintenance [facility] Care Teams Web Operations Lead Relationship Specialty Start Date End Date David Santana DO [address] [place] [address] PCP - General Family Medicine 05/13/24
[2025-02-23 13:43] LABS: Basophils Absolute Auto 0.1 K/mm3 (0.0-0.1); Basophils Percent Auto 0.7 % (0.2-1.2); Eosinophils Absolute Auto 0.2 K/mm3 (0-0.3); Eosinophils Percent Auto 2.2 % (0-4.4); Hematocrit 44.8 % (42.0-52.0); Hemoglobin 14.9 g/dL (14.0-18.0); Immature Granulocyte Absolute 0.02 K/mm3 (0.00-0.031); Immature Granulocyte Percent A 0.2 % (0-0.5); Lymphocytes Absolute Auto 1.74 K/mm3 (0.9-3.2); Lymphocytes Percent Auto 20.3 % (18.3-44.2); Mean Corpuscular HGB Conc 33.3 g/dl (32-36); Mean Corpuscular Hemoglobin 30.8 pg (26-34); Mean Corpuscular Volume 92.8 fl (80-100); Mean Platelet Volume 10.7 fl (7.4-10.4); Neutrophils Absolute Auto 5.5 K/mm3 (1.3-6.7); Neutrophils Percent Auto 64.6 % (45.5-73.1); Platelet Count Result 171 k/mm3 (150-375); Red Blood Count 4.83 M/mm3 (4.6-6.20); Red Cell Distribution Width 13.7 % (11.5-14.5); White Blood Count 8.6 K/mm3 (4.5-10.0)
[2025-02-23 13:57] LABS: Alanine Aminotransferase 24 U/L (6-50); Albumin Level 4.5 g/dL (3.5-5.1); Alkaline Phosphatase 84 U/L (38-126); Anion Gap 9 mmol/L (4-12); Aspartate Amino Transferase 32 U/L (17-59); Bilirubin,Total 0.5 mg/dL (0.2-1.3); Blood Urea Nitrogen 20 mg/dL (9-20); Calcium 9.4 mg/dL (8.4-10.2); Carbon Dioxide 28 mmol/L (22-30); Chloride 101 mmol/L (98-107); Cholesterol 162 mg/dL (0-200); Estimated Glomerular Filt Rate 57; Glucose 110 mg/dL (65-110); HDL Direct 48 mg/dL; Potassium 4.6 mmol/L (3.4-5.0); Sodium 138 mmol/L (137-145); Triglycerides 99 mg/dL (<150)
[2025-02-23 14:08] LABS: LDL Cholesterol Direct 80 mg/dL
== END 2025-02-23 11:47 | disposition home or self-care (01) ==
PROVIDERS: PCP Internal Medicine; Visit Provider Internal Medicine
DX: M25.561 Pain in right knee (principal); I82.411 Acute embolism and thrombosis of right femoral vein; I82.431 Acute embolism and thrombosis of right popliteal vein; I10 Essential (primary) hypertension
CPT/HCPCS: 36415; 73564; 80053; 80061; 85025; 93971